=== PATIENT | male | born 1955 | race Caucasian/White ===

== ENCOUNTER → 2020-11-14 | Outpatient (CLI) | payer MEDICAID ==
[~2020-11-14] MED LIST: GABA-1181 PO; NIFE-79 PO; SODIUM CHLORIDE 0.9% 1,000 ML IV ONE
[2020-11-14 09:48] LABS: COVID AG,FIA SOURCE NASOPHARYNGEAL
== END | disposition home or self-care (01) ==
LOC: SDS 09:18 → EDSTATUS 11-17 13:00
PROVIDERS: ATTEND Internal Medicine Gastroenterology
DX: U07.1 COVID-19 (principal)
CPT/HCPCS: 87426; C9803

== ENCOUNTER 2021-02-05 12:14 | Day surgery (SDC) | payer OTHER ==
[2021-02-04 12:47] LABS: COVID AG,FIA SOURCE NASOPHARYNGEAL
[~2021-02-05] VITALS: Ht 170.2 cm; Wt 79.5 kg
[~2021-02-05 12:14] MED LIST changes: +SODIUM CHLORIDE 0.9% 1,000 ML ONE
[2021-02-05] MEDS ORDERED: LIDOCAINE/PF 2% 5 ML VIAL IM ONE (12:15)
[2021-02-05] MEDS ORDERED: LIDOCAINE/PF 2% 5 ML SYRINGE IVP ONE (12:15)
[2021-02-05] MEDS ORDERED: PROPOFOL 1% 20 ML VIAL IVP ONE (12:15)
== END 2021-02-05 15:15 | disposition home or self-care (01) ==
LOC: SURGERY 12:14
PROVIDERS: ATTEND Internal Medicine Gastroenterology
DX: Z12.11 Encounter for screening for malignant neoplasm of colon (principal); K57.30 Diverticulosis of large intestine without perforation or abscess without bleeding; K64.8 Other hemorrhoids; Z79.899 Other long term (current) drug therapy; Z98.890 Other specified postprocedural states
CPT/HCPCS: 45378; 87426; C9803; J2704; J3490 ×2; J7030